=== PATIENT | female | born 1980 | race Caucasian/White ===

== ENCOUNTER → 2016-07-13 | Outpatient (CLI) | payer OTHER ==
[~2016-07-13] MED LIST: PRENTAB26 PO
[2016-07-13 11:25] LABS: BASO % 0.3 %; BASO ABS # 0.02 K/uL (0-0.2); EOS % 0.6 %; HEMATOCRIT 32.9 % (37-47); IG% 0.1 %; LYMPH % 25.8 %; LYMPH ABS # 1.87 K/uL (1.2-3.4); MEAN CORPUSCULAR HEMOGLOBIN 19.9 pg (25-34); MEAN CORPUSCULAR HGB CONC 33.1 g/dl (32-36); MONO % 6.8 %; NEUT % 66.4 %; PLATELET COUNT 270 K/uL (130-400); RED BLOOD COUNT 5.48 M/uL (4.2-5.4); WHITE BLOOD COUNT 7.25 K/uL (4.8-10.8)
[2016-07-13 11:55] LABS: COMPLETE YES; MICROCYTOSIS PRESENT; OVALOCYTES 1+; POIKILOCYTOSIS PRESENT
[2016-07-13 12:40] LABS: URINE APPEARANCE CLEAR (CLEAR); URINE BILIRUBIN NEG (NEG); URINE COLOR YELLOW; URINE NITRITE NEG (NEG); URINE SPECIFIC GRAVITY 1.007 (1.000-1.030); UROBILINOGEN NEG (NEG)
[2016-07-13 12:53] LABS: MANUAL MICROSCOPIC REQUIRED? NO; REVIEW REQ? NO
[2016-07-15 00:51] LABS: CHLAMYDIA TRACH RNA*** NOT DETECTED (NOT DETECTED); GC (NEIS GONORRHOEAE)RNA** NOT DETECTED (NOT DETECTED)
== END | disposition home or self-care (01) ==
LOC: C.LAB1850 10:03
PROVIDERS: ATTEND Obstetrics & Gynecology
DX: O09.521 Supervision of elderly multigravida, first trimester (principal)

== ENCOUNTER → 2016-09-07 | Outpatient (CLI) | payer OTHER ==
[2016-09-07 14:21] LABS: GTGD 50 Grams
[2016-09-08 13:38] LABS: AFP CONCENTRATION 36.5 NG/ML; AFP MULTIPLE OF MEDIAN 1.08; AFPTS GESTATIONAL AGE 16.6 WEEKS; AFPTS INSULIN DEP DIABETIC? NO; AFPTS MATERNAL WT 158 LBS; ALPHA-FETOPROTEIN RACE CAUCASIAN=W; HISTORY OF NTD NO; REPEAT SAMPLE? NO
== END | disposition home or self-care (01) ==
LOC: C.LAB1850 10:04
PROVIDERS: ATTEND Obstetrics & Gynecology
DX: O09.522 Supervision of elderly multigravida, second trimester (principal)

== ENCOUNTER → 2016-09-25 | Day surgery (SDC) | payer OTHER ==
[2016-09-22 10:37] VITALS: BMI 25.0
[~2016-09-25] VITALS: Ht 165.1 cm; Wt 70.9 kg
[~2016-09-25] MED LIST changes: +BUPIVACAINE 0.5 % 5 MG/1 ML PF 10ML VIAL ONE; +CEFAZOLIN 1000MG/55 ML D5W IV ONE; +CEFAZOLIN 1000MG/55 ML D5W IV SCH; +CEFAZOLIN IV 1,000 MG in DEXTROSE 5% 50ML 50 ML IV ONE; +LACTATED RINGER'S 1000ML 1,000 ML IV SCH; +LIDOCAINE HCL 1% 20 ML VIAL ONE; +PATIENT'S HEIGHT AND/OR WEIGHT NEEDED SCH; +SODIUM CHLORIDE 0.9% 1000ML 1,000 ML IV SCH
[2016-09-25 13:48] VITALS: Ht 165.1 cm; Wt 70.9 kg
--- NOTE | 2016-09-25 14:01 | History & Physical Bridge - SC ---
H&P Re-Evaluation Bridge Note: I have examined the patient, reviewed the History & Physical and in the interval since the performance of the History & Physical I have noted the following changes of clinical significance: No changes noted ASA II. .
--- NOTE | 2016-09-25 14:42 | [facility] Post Operative Brief Note ---
Immediate Operative Summary Operative Date Sep 25, 2016. Pre-Operative Diagnosis Left foot mass Post-Operative Diagnosis same Procedure(s) Performed Excisional Biopsy of Left Foot Mass Surgeon Dr Kelsey Plate Preparer Surgeon(s) Maryellen Bolton PA-C Estimated Blood Loss minimaal Findings Left Foot Mass localized to dermis Specimens A. Left foot mass Anesthesia Local Complication(s) None Disposition Recovery Room / PACU
--- NOTE | 2016-09-25 14:45 | Discharge Instructions-SurgCtr ---
Discharge Instructions Date of Service Sep 25, 2016. Visit Reason for Visit: Left Foot Mass Discharge Discharge Diagnosis / Problem: left foot mass Discharge Goals Goal(s): Decrease discomfort, Diagnostic testing, Therapeutic intervention Activity Recommendations Activity Limitations: per Instructions/Follow-up section Weightbearing Status: Left weightbearing (as tolerated) Anesthesia . Post Anesthesia Instructions: If you have had General Anesthesia or IV Sedation: * Do not drive today. * Resume driving when surgeon permits. * Do not make important decisions or sign legal documents today. * Call surgeon for: 1. Temperature elevations greater than 101 degrees F. 2. Uncontrollable pain. 3. Excessive bleeding. 4. Persistent nausea and vomiting. 5. Medication intolerance (nausea, vomiting or rash). * For nausea and vomiting use only clear liquids such as: tea, soda, bouillon until nausea subsides, then gradually increase diet as tolerated. * If you have any concerns or questions, call your surgeon's office. If physician is unavailable and it is an emergency, call 911 or go to the nearest emergency room. . Instructions / Follow-Up Instructions / Follow-Up MEDICATIONS: * Resume previous medications unless instructed otherwise by your surgeon. * Always take pain medication on a full stomach or with food to avoid upset stomach. * Do not drink alcohol or drive while taking narcotics. * Tylenol may be taken if narcotic not needed. SPECIAL CARE INSTRUCTIONS: __ None __ Keep extremity elevated and iced x 48 hours; apply ice 20-30 minutes 8-10 times/day. May remove at night. __ Crutches __ May discard when able _x_ Post-op shoe for weightbearing __ 24 hrs/day __ Remove at night _x_ Dressing __ Maintain until seen in office, may shower with plastic over site _x_ Remove dressings in 48 hours and then may shower _x_ Cover incisions with band-aids after showering __ Do not remove steri-strips Call physician if chills or temperature rises above 102 degrees or pain unrelieved by prescribed pain medications. Office [phone] follow up in 2 weeks Diet Recommendations Home Diet: resume previous diet Procedures Procedures Performed: Excisional Biopsy of Left Foot Mass Pending Studies Studies pending at discharge: no Medical Emergencies . Who to Call and When: Medical Emergencies: If at any time you feel your situation is an emergency, please call 911 immediately. . Non-Emergent Contact Non-Emergency issues call your: Surgeon . . "Provider Documentation" section prepared by Gallo Bolton.
--- NOTE | 2016-09-25 15:13 | OPERATIVE REPORT ---
DATE OF OPERATION: 09/25/2016 SURGEON: Dr. Holden Kelsey. RAILWAY HEAD TENDER: YANNICK Mahajan. PREOPERATIVE DIAGNOSIS: Left foot mass. POSTOPERATIVE DIAGNOSIS: Same. PROCEDURE PERFORMED: Excisional biopsy of left foot mass. COMPLICATIONS: None. ESTIMATED BLOOD LOSS: Minimal. TOURNIQUET TIME: 4 minutes at 300 mmHg. ANESTHESIA: Local. 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 She first noticed this about 5-6 months ago. I had seen at that time and we talked about excising, but she got and elected to just treat this conservatively and she just watch it over time. Over the past week or so, she has developed some black discoloration of this. It was initially painful, but resolved. The patient desired this to be excised. Plan was to proceed with excisional biopsy. Differential diagnosis is unclear. Dahinda was most likely some type of epidermal or an inclusion cyst, but the possibility even melanoma was considered. We did try to excise this fairly widely and send the tissue for pathology. SPECIMENS: Left foot mass sent for pathology. OPERATIVE PROCEDURE: The patient taken to the operating room, identified and placed on the operating table in supine position. All contact areas were appropriately padded. IV antibiotics were provided by the nursing staff. A left ankle tourniquet was placed. We then scrubbed the left foot with Hibiclens and then prepped it with ChloraPrep and then draped the foot in normal sterile fashion. The left leg was elevated but not exsanguinated. The tourniquet was then placed at 300 mmHg. I then ellipsed, made an elliptical incision around the mass incorporating the entire mass down to the subcutaneous tissues. I then excised this and sent it for pathology. I examined the subcutaneous tissues and did not appear to be any tissue in the subcutaneous tissues. We irrigated the wound extensively. I searched the base of the wound, there is no additional tissue or abnormal tissue visible. I then let the tourniquet down for a total tourniquet time of 4 minutes. The specimen was sent for pathology. The wound was irrigated. The skin was then closed with 3-0 nylon suture in a simple fashion. The foot was then cleaned and dried and a sterile dressing of Xeroform, 4 x 4s, sterile cast padding and a Coban wrap were applied. The patient then transferred to the recovery room in stable condition. The patient tolerated the procedure well with no complications. All needle and sponge counts were correct at the end of the operation. I attest to the content of the Intraoperative Record and any orders documented therein. Any exceptio ns are noted below.
[2016-09-25 15:38] VITALS: BP 100/66; PULSE 69; O2SAT 100
== END | disposition home or self-care (01) ==
LOC: X.SURG 13:04
PROVIDERS: ATTEND Orthopaedic Surgery Sports Medicine
DX: L85.9 Epidermal thickening, unspecified (principal); B07.9 Viral wart, unspecified

== ENCOUNTER → 2016-11-22 | Outpatient (CLI) | payer OTHER ==
[~2016-11-22] MED LIST changes: -BUPIVACAINE 0.5 % 5 MG/1 ML PF 10ML VIAL ONE; -CEFAZOLIN 1000MG/55 ML D5W IV ONE; -CEFAZOLIN 1000MG/55 ML D5W IV SCH; -CEFAZOLIN IV 1,000 MG in DEXTROSE 5% 50ML 50 ML IV ONE; -LACTATED RINGER'S 1000ML 1,000 ML IV SCH; -LIDOCAINE HCL 1% 20 ML VIAL ONE; -PATIENT'S HEIGHT AND/OR WEIGHT NEEDED SCH; -SODIUM CHLORIDE 0.9% 1000ML 1,000 ML IV SCH
== END | disposition home or self-care (01) ==
LOC: C.LAB1850 09:27
PROVIDERS: ATTEND Physician Assistant
DX: Z00.00 Encounter for general adult medical examination without abnormal findings (principal)

== ENCOUNTER → 2016-11-27 | Outpatient (CLI) | payer OTHER ==
[2016-11-27 17:34] LABS: HEMATOCRIT 29.3 % (37-47)
[2016-11-27 18:20] LABS: URINE APPEARANCE CLEAR (CLEAR); URINE BILIRUBIN NEG (NEG); URINE COLOR YELLOW; URINE EPITHELIAL CELL AUTO >30 /lpf (0-5); URINE NITRITE NEG (NEG); URINE PH 6.5 (4.5-7.5); URINE SPECIFIC GRAVITY 1.022 (1.000-1.030); UROBILINOGEN NEG (NEG)
[2016-11-27 18:21] LABS: MANUAL MICROSCOPIC REQUIRED? NO; REVIEW REQ? NO
[2016-11-27 18:21] LABS: GTGD 50 Grams
== END | disposition home or self-care (01) ==
LOC: C.LAB1850 15:52
PROVIDERS: ATTEND Obstetrics & Gynecology
DX: O09.523 Supervision of elderly multigravida, third trimester (principal)

== ENCOUNTER → 2017-01-25 | Outpatient (CLI) | payer OTHER | END | disposition home or self-care (01) | LOC: C.LABSPEC 17:47 | PROVIDERS: ATTEND Obstetrics & Gynecology | DX: O09.523 Supervision of elderly multigravida, third trimester (principal) ==

== ENCOUNTER 2017-02-19 16:55 | Inpatient (IN) | payer OTHER ==
[~2017-02-19] VITALS: Ht 162.6 cm; Wt 87.3 kg
[2017-02-19] MEDS ORDERED: LACTATED RINGER'S 1000ML 1,000 ML IV PRN (17:41)
[2017-02-19 17:52] VITALS: Ht 162.6 cm; Wt 87.3 kg
[2017-02-19] MEDS ORDERED: FENTANYL 2MCG/ML ROPIV 1.25MG/ML 100ML BAG EPI ONE (18:48)
[2017-02-19] MEDS ORDERED: EpHEDrine SULFATE INJ 50 MG/ML AMP ONE (18:48)
[2017-02-19] MEDS ORDERED: BUPIVACAINE 0.25% 30 ML VIAL ONE (18:48)
[2017-02-19] MEDS ORDERED: FENTANYL CITRATE INJ 50 MCG/1 ML 2 ML VIAL ONE (18:48)
[2017-02-19 18:52] LABS: MEAN CELL VOLUME 61.1 fL (80-100); MEAN CORPUSCULAR HEMOGLOBIN 19.8 pg (25-34); MEAN CORPUSCULAR HGB CONC 32.5 g/dl (32-36); PLATELET COUNT 278 K/uL (130-400); RED BLOOD COUNT 5.24 M/uL (4.2-5.4); WHITE BLOOD COUNT 13.63 K/uL (4.8-10.8)
[2017-02-19] MEDS: LACTATED RINGER'S 1000ML 1,000 ML IV SCH ×2 (20:10→21:12)
[2017-02-19] MEDS ORDERED: NALOXONE HCL INJ 1 MG in SODIUM CHLORIDE 0.9% 1000ML 1,000 ML IV PRN (20:15)
[2017-02-19] MEDS ORDERED: LACTATED RINGER'S 1000ML 500 ML IV PRN ×2 (20:15→21:31)
[2017-02-19] MEDS ORDERED: NALOXONE HCL INJ 0.4 MG/1 ML VIAL/CARP IV PRN (20:15)
[2017-02-19] MEDS ORDERED: NALBUPHINE HCL INJ 10 MG/ML AMP IV PRN (20:15)
[2017-02-19] MEDS ORDERED: DiphenhydrAMINE HCL 50 MG/ML VIAL IV PRN (20:15)
[2017-02-19] MEDS ORDERED: ONDANSETRON INJ 2 MG/ML 2 ML VIAL IV PRN (20:15)
[2017-02-19] MEDS ORDERED: EpHEDrine SULFATE INJ 50 MG/ML AMP IV PRN (20:15)
[2017-02-19] MEDS ORDERED: PHENYLEPHRINE 100MCG/ML 5ML SYR ONE (21:02)
[2017-02-19] MEDS: FENTANYL 2MCG/ML ROPIV 1.25MG/ML 100ML BAG EPI PRN ×2 (21:08→23:04)
[2017-02-19] MEDS ORDERED: OXYTOCIN 30 UNITS/500ML NSS IV PRN (21:45)
[2017-02-19] MEDS ORDERED: NURSING VERBAL MED ORDER ONE (23:15)
[2017-02-20] VITALS (8 sets, daily range): BP systolic 79–95; BP diastolic 43–61; PULSE 68–91; TEMP 36.3–37.2; O2SAT 94–100
[2017-02-20] MEDS ORDERED: SUPERCREAM 0.870 % 15GM JAR EXT PRN (01:30)
[2017-02-20] MEDS ORDERED: BENZOCAINE 20% AER SPR 82.5 GM CAN EXT PRN (01:30)
[2017-02-20] MEDS ORDERED: HYDROCORTISONE ACETATE 25 MG SUPP PR PRN (01:30)
[2017-02-20] MEDS ORDERED: OXYTOCIN 30 UNITS/500ML NSS IV PRN (01:30)
[2017-02-20] MEDS ORDERED: OXYCODONE/ACETAMINOPHEN 5-325 TAB PO PRN (01:30)
[2017-02-20] MEDS ORDERED: LANOLIN OINT EXT PRN ×2 (01:30)
--- NOTE | 2017-02-20 01:56 | Anesthesia Procedure Note ---
Anesthesia Epidural Removal Nt Date & Time Feb 20, 2017 at 01:56 Vital Signs Pain Intensity: 0.0 Notes Mental Status: alert / awake / arousable, participated in evaluation Nausea / Vomiting: adequately controlled Pain: adequately controlled Airway Patency, RR, SpO2: stable & adequate BP & HR: stable & adequate Hydration State: stable & adequate Neuraxial Anesthesia: was administered Anesthetic Complications: no major complications apparent, pt satisfied with anesthetic care Epidural: removed without complications, with tip intact
[2017-02-20] MEDS: IBUPROFEN 600 MG TAB PO PRN ×4 (04:40→19:50)
[2017-02-20] MEDS: DOCUSATE SODIUM 100 MG CAP PO SCH ×2 (07:30→19:50)
[2017-02-20] MEDS: ACETAMINOPHEN 325 MG TAB PO PRN ×2 (07:32→13:32)
--- NOTE | 2017-02-20 09:05 | DELIVERY SUMMARY ---
DATE OF OPERATION: 02/20/2017 PREDELIVERY DIAGNOSES: 1. A 37-year-old 5, para 2-0-2-2 at 40 weeks 1 day. 2. Spontaneous labor. 3. Heterozygous beta thalassemia trait. 4. History of loop electrosurgical excision procedure. POSTDELIVERY DIAGNOSES: Same. PROCEDURE: Spontaneous vaginal delivery with repair of first-degree perineal laceration. ESTIMATED BLOOD LOSS: 300 mL. FINDINGS: Viable male . Apgars 9 and 9. Weight 9 pounds 3 ounces. DESCRIPTION OF DELIVERY: The patient progressed to complete with epidural anesthesia. She then began to push. She spontaneously vaginally delivered a viable male in the left occiput anterior position. The head delivered followed by the anterior shoulder followed by the posterior shoulder followed by the body. The baby was placed on mother's abdomen. The cord was doubly clamped and cut. Spontaneous cry was heard. No nuchal cord was noted. Cord blood for private cord backing was collected. The placenta was then delivered spontaneously intact with a 3-vessel cord. Pitocin was given and the uterus became firm. The uterus and vagina were swept of all clots and debris. The cervix, vagina and perineum were inspected and a first-degree perineal laceration was noted and repaired in standard fashion with 3-0 Vicryl. An additional stitch of 3-0 Vicryl was used to obtained excellent hemostasis. Mother and baby tolerated the delivery well and recovered in the room in stable and good condition. All instrument, sponge and needle counts were correct at the conclusion of the delivery x2. I attest to the content of the Intraoperative Record and any orders documented therein. Any exception s are noted below.
[2017-02-21] MEDS: IBUPROFEN 600 MG TAB PO PRN (04:37)
--- NOTE | 2017-02-21 06:47 | Progress Note ---
Subjective Feb 21, 2017. Subjective physical exam Ambulation: ambulating normally Voiding: no voiding problems Passing Gas: Yes Diet Tolerance: Regular Diet Lochia: Small Feeding Type: Breast Feeding Review of Systems Constitutional: No fever, No chills, No sweats, No weight loss, No weakness, No fatigue, No problem reported Respiratory: No cough, No sputum, No wheezing, No shortness of breath, No dyspnea on exertion, No dyspnea at rest, No hemoptysis, No problem reported Breast: No see HPI, No breast lump, No change in shape, No nipple discharge, No breast pain, No problem reported Abdomen: No pain, No nausea, No vomiting, No diarrhea, No constipation, No GI bleeding, No problem reported Female : No see HPI, No dysuria, No urinary frequency, No hematuria, No incontinence, No abnormal vaginal bleeding, No vaginal discharge, No problem reported Objective Vital Signs Date Time Temp Pulse Resp B/P (MAP) Pulse Ox O2 Delivery O2 Flow Rate FiO2 02/20/17 23:20 36.5 71 16 91/61 (71) 94 Room Air 02/20/17 23:20 Room Air 02/20/17 20:30 36.5 72 16 95/58 (70) 100 Room Air 02/20/17 15:45 100 Room Air 02/20/17 15:45 36.5 70 16 89/55 (66) 100 Room Air 02/20/17 13:15 36.3 76 16 85/59 (68) Room Air 02/20/17 10:13 68 86/46 (59) 02/20/17 07:45 36.6 73 16 79/48 (58) 98 Room Air 79/43 (55) 02/20/17 07:45 98 Room Air Physical Exam General Appearance: WELL-APPEARING, NO APPARENT DISTRESS Fundus: Firm, Non-Tender, Relation to Umbilicus (2 below U) Extremities: no calf tenderness Laboratory Results Last 24 Hours Test 02/21/17 04:44 Assessment and Plan Day#: 1 Continue Routine Care: stable course continue current care plan
[2017-02-21 07:06] LABS: HEMATOCRIT 28.5 % (37-47)
--- NOTE | 2017-02-21 07:10 | Discharge Instructions ---
Discharge Instructions Date of Service Feb 21, 2017. Admission Reason for Admission: Check Labor Discharge Discharge Diagnosis / Problem: recovery from normal delivery Discharge Goals Goal(s): Routine recovery after delivery Medications Continue Dispensed Medications: supercream, dermaplast, lansinoh Activity Recommendations Activity Limitations: per Instructions/Follow-up section . Instructions / Follow-Up Instructions / Follow-Up ACTIVITY RECOMMENDATIONS: * Gradual return to full activity over the next 2-3 weeks. * No lifting - nothing heavier than baby over the next 2-3 weeks. * Do not engage in vigorous exercise, sexual activity or sports until cleared by your physician. * Do not drive or operate any motorized equipment until cleared by your physician. * You may shower/bathe daily. MEDICATIONS: For discomfort or pain, you may use Acetaminophen (Tylenol), Ibuprofen (Advil), or Naproxen (Aleve) following the package directions. For constipation you may use Colace following the package directions. BREAST CARE: If you are not breast feeding: * Wear a supportive bra 24 hours a day for one to two weeks. * Avoid stimulating your breasts and nipples as much as possible during the first few weeks after delivery. * When taking a shower, have the warm water hit your back, not breasts. * When your breasts feel full, apply ice packs. Usually three to four times a day helps ease the discomfort. * Take a mild pain medication (Tylenol / Motrin) when you are uncomfortable. If breast feeding: * Use breast milk to lubricate nipples. Lansinoh cream may be used for sore nipples. You do not need to remove cream prior to breast feeding. If using a different brand of cream, check the label for directions regarding removal of cream prior to nursing. * Wear a supportive bra. * If having problems with breasts or breast feeding, call a customer relations consultant or your health care provider. EPISIOTOMY CARE: After delivery, if you have an episiotomy (stitches), the following steps will ease discomfort and aid healing. * For the first 24 hours after delivery, place ice packs next to your episiotomy to help reduce swelling. * After the first 24 hour-period, sitz baths, either portable or in the tub, are suggested. A shower with a shower arm sprayed over the episiotomy may be comforting. * Michelle care should be done after each voiding and bowel movement. Squirt warm water from a plastic bottle over the perineum (region of the body between the anus and urinary opening) and pat dry. * Use Dermoplast to ease discomfort. Shake container. [place] directly over the episiotomy. Place a Tucks on a clean sanitary pad next to your episiotomy. SPECIAL CARE INSTRUCTIONS: When you are discharged from the hospital, it is important for you to follow the instructions listed below: * During the first week at home, you should be able to care for yourself and your baby. In addition, the usual light household activities are encouraged. * Limit your activities to the way you feel. Do not try to clean the house or move furniture. Be sensible. * If you actively engage in sports and have done so up until the time of your delivery, you may resume these activities as soon as you feel able. This may take up to one month or even longer. Use good judgment. * Continue to take your vitamins for at least six weeks after the of your baby. * Your diet need not be limited unless you were on a special diet before your delivery. Breast-feeding mothers need around 2500 calories per day and at least 64-80 ounces of fluid per day (8 to 10 glasses). * You should eat foods from the four major food groups. Crash diets or fad diets are to be avoided. Eating lean meats, fresh fruits and vegetables, low-fat dairy products, high fiber foods and a regular exercise program, will help you get back to your pre- weight without putting your health at risk. * Constipation is sometimes a problem after delivery. Take a mild laxative as needed. If breast feeding, Milk of Magnesia is acceptable to use. You may use a suppository or Fleets enema if no episiotomy. * A daily shower or tub bath is suggested. Be sure to thoroughly and gently dry the perineum. * A bloody vaginal discharge will usually continue until around four weeks post . A small amount of bleeding may continue for as long as six weeks. Vaginal discharge changes from the bright red bleeding after delivery to pink then brownish and finally yellowish-pink before becoming white and disappearing. * Bleeding may increase with activity. Your first period may come in 4-8 weeks. If you are breast feeding, your period may be delayed even longer. * [place] (sex) can begin whenever both you and your partner feel comfortable and do not have any form of genital infection. It is recommended that you wait at least six weeks for internal and external healing to occur. If you have questions, please talk to your health care practitioner. A condom should be used to prevent infection and . * Foreplay, gentle intercourse and lubrication is very important the first several times to prevent pain. A water-based lubricant such as K-Y jelly or Astroglide may be used. * If you have RH negative blood and your baby is RH positive, you will receive RHOGAM by injection prior to discharge. The nurse will give you a card to keep with you that has the date and place that you received RHOGAM after delivery. * During your care, you had a Rubella screen done to check for the presence of rubella antibodies in your blood. If your test was negative, you will receive a Rubella vaccine prior to discharge. This vaccine may cause a fever, soreness at the injection site and flu-like symptoms. If these symptoms persist, notify your health care practitioner. is not advised for one month after a Rubella vaccine. * Verbalizes understanding of car seat law as reviewed with patient nursing. * Car Seat hand-out given and reviewed with patient by nursing. * Shaken baby information reviewed with patient by nursing. Call you doctor if: * Heavy bleeding (saturating several pads an hour) or passing clots the size of your fist. * A fever >101 degrees F (38.3 degrees C) on two occasions four hours apart and /or chills. * Unusual pain in the pelvic or vaginal areas. * "Baby Blues" lasting longer than two weeks. If you have any questions or concerns, call your health care practitioner at . FOLLOW UP VISIT: * Please call the office at to schedule a 6 week examination. It is important you keep this appointment. It is important for you to make arrangements for either yearly or twice yearly check-ups thereafter. Current Hospital Diet Patient's current hospital diet: Regular OB Diet Discharge Diet Recommended Diet: Regular OB Diet Pending Studies Studies pending at discharge: no Laboratory Results Lipid Panel Test 11/22/16 09:31 Range/Units Triglycerides Level 174 H 0-150 mg/dl Cholesterol Level 291 H 0-200 mg/dl HDL Cholesterol 72 mg/dl Cholesterol/HDL Ratio 4.0 LDL Cholesterol, Calculated 184 mg/dl Medical Emergencies . Who to Call and When: Medical Emergencies: If at any time you feel your situation is an emergency, please call 911 immediately. . Non-Emergent Contact Non-Emergency issues call your: Violin Mechanic . . "Provider Documentation" section prepared by Wendy Jurado. . VTE Core Measure Inpt VTE Proph given/why not?: Treatment not indicated
[2017-02-21] MEDS ORDERED: PRENATAL VITAMIN TAB PO SCH (08:00)
[2017-02-21 08:30] VITALS: BP 86/52; PULSE 72; TEMP 36.4; O2SAT 98
[2017-02-21] MEDS: DOCUSATE SODIUM 100 MG CAP PO SCH (09:47)
[2017-02-21 16:00] VITALS: BP 95/66; PULSE 67; TEMP 36.7; O2SAT 98
[2017-02-21] MEDS ORDERED: BISACODYL 5 MG TABEC PO SCH (20:00)
== END 2017-02-21 19:10 | disposition home or self-care (01) | DRG 775 ==
LOC: C.LD 16:55 → C.OPB 16:55 → C.LD 17:43 → C.OPB 17:43 → C.OBG 02-20 03:45
PROVIDERS: ADMIT Obstetrics & Gynecology; ATTEND Obstetrics & Gynecology
PROC: 10E0XZZ Delivery of Products of Conception, External Approach (ICD-10-PCS; principal; 2017-02-20)
PROC: 0HQ9XZZ Repair Perineum Skin, External Approach (ICD-10-PCS; principal; 2017-02-20)
DX: O48.0 Post-term pregnancy (principal); Z37.0 Single live birth; Z3A.40 40 weeks gestation of pregnancy; O26.893 Other specified pregnancy related conditions, third trimester; O70.0 First degree perineal laceration during delivery; O99.02 Anemia complicating childbirth; O35.2XX0 Maternal care for (suspected) hereditary disease in fetus, not applicable or unspecified; D56.3 Thalassemia minor

== ENCOUNTER → 2017-04-04 | Outpatient (CLI) | payer OTHER | END | disposition home or self-care (01) | LOC: C.PAPS 17:48 | PROVIDERS: ATTEND Obstetrics & Gynecology | DX: Z39.2 Encounter for routine postpartum follow-up (principal) ==

== ENCOUNTER → 2018-01-15 | Outpatient (CLI) | payer OTHER ==
[2018-01-15 12:39] LABS: ALBUMIN 3.6 gm/dl (3.4-5.0); TOTAL PROTEIN 7.8 gm/dl (6.4-8.2)
== END | disposition home or self-care (01) ==
LOC: C.LAB1850 10:36
PROVIDERS: ATTEND Internal Medicine
DX: Z00.00 Encounter for general adult medical examination without abnormal findings (principal); R10.13 Epigastric pain

== ENCOUNTER → 2018-01-30 | Outpatient (CLI) | payer OTHER ==
--- NOTE | 2018-01-30 10:27 | DIAGNOSTIC IMAGING REPORT ---
ULTRASOUND RIGHT UPPER QUADRANT ABDOMEN CLINICAL HISTORY: Epigastric abdominal pain. COMPARISON STUDY: Abdominal ultrasound dated 10/30/2011. TECHNIQUE: Real-time, grayscale, and color flow sonography of the right upper quadrant of the abdomen was performed. Images are reviewed in the transverse and longitudinal planes. FINDINGS: Liver: The liver is normal in size and echotexture. There is no intrahepatic biliary ductal dilatation. The main portal vein is patent. Gallbladder: Small gallbladder polyps are incidentally noted and measure up to 4 mm. These were also seen on the 2012 examination. The gallbladder is otherwise normal in appearance. No gallstones are identified. There is no gallbladder wall thickening or pericholecystic fluid. A sonographic Matson's sign is reportedly absent. The common bile duct measures up to 0.3 cm in diameter. Pancreas: Visualized portions of the pancreatic head and body are normal in appearance. The splenic vein is patent. Right kidney: Survey images of the right kidney demonstrate normal size and echotexture. There is no hydronephrosis. Ascites: None. IMPRESSION: No acute sonographic abnormality is identified in the right upper quadrant. No gallstones are seen. Electronically signed by: Keyur Merritt M.D. 01/30/2018 10:25 AM Dictated Date/Time: 01/30/2018 10:24 AM
== END | disposition home or self-care (01) ==
LOC: C.ULTR 09:49
PROVIDERS: ATTEND Internal Medicine
DX: R10.13 Epigastric pain (principal)

== ENCOUNTER 2020-03-19 10:24 | Inpatient (IN) ==
[2020-03-19] MEDS ORDERED: OXYTOCIN 30 UNITS/500 ML BAG IV PRN ×3 (10:27→17:39)
[2020-03-19 10:55] LABS: Hematocrit (blood only) 32.5 % (37-47); Hemoglobin 10.2 g/dL (12.0-16.0); Mean Corpuscular Hemoglobin 19.6 pg (25-34); Mean Corpuscular Volume 62.4 fL (80-100); Mean Platelet Volume 10.2 fL (7.4-10.4); Platelet Count 253 K/uL (130-400); RDW Coefficient of Variation 15.9 % (11.5-14.5); RDW Standard Deviation 35.4 fL (36.4-46.3); Red Blood Count 5.21 M/uL (4.2-5.4); White Blood Count 9.05 K/uL (4.8-10.8)
[2020-03-19 11:01] LABS: Mean Corpuscular Hgb Conc 31.4 g/dL (32-36)
[2020-03-19] MEDS: LACTATED RINGER'S 1,000 ML IV PRN ×2 (11:30→15:17)
[2020-03-19] MEDS ORDERED: ePHEDrine sulfate 50 MG/ML AMP ONE (14:21)
[2020-03-19] MEDS ORDERED: fentaNYL 2MCG/ML ROPIV 1.25MG/ML 100 ML BAG EPI ONE (14:22)
[2020-03-19] MEDS ORDERED: fentaNYL citrate 100 MCG/2 ML VIAL ONE (14:22)
[2020-03-19] MEDS ORDERED: BUPIVACAINE 0.25% 30 ML VIAL ONE (14:22)
[2020-03-19] MEDS ORDERED: ONDANSETRON INJ 2 MG/ML 2 ML VIAL IV PRN (14:44)
[2020-03-19] MEDS ORDERED: DiphenhydrAMINE HCL 50 MG/ML VIAL IV PRN (14:44)
[2020-03-19] MEDS ORDERED: ePHEDrine sulfate 50 MG/ML AMP IV PRN (14:44)
[2020-03-19] MEDS ORDERED: NALOXONE HCL 0.4 MG/1 ML VIAL/CARP IV PRN (14:44)
[2020-03-19] MEDS ORDERED: fentaNYL 2MCG/ML ROPIV 1.25MG/ML 100 ML BAG EPI PRN (14:44)
[2020-03-19] MEDS ORDERED: NALOXONE HCL 1 MG in SODIUM CHLORIDE 0.9% 1000ML 1,000 ML IV PRN (14:44)
--- NOTE | 2020-03-19 14:48 | Anesthesiology Consultation ---
Date of Service March 19, 2020 Patient is Covid 19 negative as of 03/15/20. The patient is my . Due to the risk of Covid 19 she would prefer as little exposure to medical personnel as possible and would therefore like for me to place her epidural. Previous permission for me to place her epidural was given by Dr. Dinero. Assessment & Plan Chart Review Chart Review: Patient NOT seen in Pre Admission Testing and Acceptable Risk for Labor Epidural Consults Requested none ASA ASA2 Proposed Anesthesia Anesthesia Type: Labor Epidural and CSE Risk / Benefits Reviewed With: PT / POA / Parent / Guardian, Accepts Plan and Informed Consent Obtained History Height/Weight Height: 5 ft 5 in Weight: 81.647 kg Allergies Allergy/AdvReac Type Severity Reaction Status Date / Time No Known Drug Allergies Allergy Unknown Verified 03/19/20 11:48 latex AdvReac Rash Verified 03/19/20 11:48 Medications Home Medications Medication Instructions Recorded Confirmed Last Taken aspirin 81 mg tablet,delayed 81 mg PO DAILY 01/22/20 03/19/20 03/18/20 21:30 release docusate sodium [Colace] 100 mg PO DAILY 03/19/20 03/19/20 03/17/20 19:00 ferrous sulfate [Iron (ferrous 325 mg PO DAILY 03/19/20 03/19/20 03/19/20 07:00 sulfate)] prenat.vits,dara,jjz-[id number]-aulci 1 tab PO DAILY 03/19/20 03/19/20 03/19/20 08:00 [ Vitamin] Active Medications Generic Name Dose Route Start Last Admin Trade Name Freq PRN Reason Stop Dose Admin Lactated Ringer's 1,000 mls @ 125 mls/hr 03/19/20 10:27 03/19/20 14:33 Lr IV 03/21/20 10:26 999 mls/hr .Q8H PRN Infusion L&D Protocol Protocol Oxytocin 30 units in 500 mls @ 3 mls/hr 03/19/20 10:27 03/19/20 14:20 Pitocin IV 03/21/20 10:26 0.18 units/hr .Q24H PRN 3 mls/hr Labor Induction/Augmentation Titration Protocol 0.18 UNITS/HR Past Medical History Medical History Beta thalassemia, heterozygous Cervical dysplasia Leep 08/2010 LEONELA 1-2 Encounter for contraceptive management Encounter for anatomic survey Evaluate anatomy not seen on prior sonogram History of varicella Pelvic cramping Visit for routine director dance exam Exercise / Class Metabolic Activity II 4-5 Yardwork/Stairs/Walk up hill Past Family History Family History Father Cerebral arterial aneurysm Hypertension Aunt Cerebral arterial aneurysm Grandfather (Paternal) Stroke Grandmother (Paternal) Stroke Other Thalassemia Past Surgical History Surgical History History of loop electrical excision procedure (LEEP) S/P appendectomy S/P tooth extraction Status post hip surgery left Past Anesthesia History No Hx of Anesthesia Complications and No Family Hx of Anesthesia Complications Social History Smoking Status: Never smoker Hx Alcohol Use: No Hx Substance Use: No Review of Systems no chest pain or sob Physical Exam Vital Signs Last Vital Signs Temp 36.8 C 03/19/20 11:10 Pulse 70 03/19/20 14:41 Resp 20 03/19/20 11:10 BP 113/77 03/19/20 14:40 Pulse Ox 99 03/19/20 14:41 ENMT Mouth: no TMJ abnormality Thyromental Distance: > or= 3.5 Finger Breadths Mallampati Class: II Neck normal visual inspection Respiratory normal respiratory effort Auscultation: lungs clear to auscultation bilaterally Cardiovascular Rate/Rhythm: regular rate and regular rhythm Musculoskeletal Spine: normal cervical ROM Neurologic moves all extremities Psychiatric Orientation: alert and oriented x 3 Testing Laboratory Results 03/19/20 10:45
--- NOTE | 2020-03-19 17:27 | Anesthesia Procedure Note ---
Date of Service March 19, 2020 Anesthesia Post Epidural Note Vital Signs Vital Signs: Temp Pulse Resp BP Pulse Ox 36.8 C 58 L 20 107/53 L 100 03/19/20 15:29 03/19/20 17:11 03/19/20 15:29 03/19/20 17:11 03/19/20 16:51 Notes Mental Status: alert / awake / arousable and participated in evaluation Nausea / Vomiting: adequately controlled Pain: adequately controlled Airway Patency, RR, SpO2: stable & adequate BP & HR: stable & adequate Hydration State: stable & adequate Neuraxial Anesthesia: was administered and sensory block is resolving Anesthetic Complications: no major complications apparent and Pt Satisfied with anesthetic care Epidural: Removed without complications and With tip intact
[2020-03-19] MEDS ORDERED: DIPHTHERIA/TETANUS/PERTUSSIS 0.5 ML SYR/VIAL IM ONE (17:39)
[2020-03-19] MEDS ORDERED: HYDROCORTISONE ACETATE 25 MG SUPP PR PRN (17:39)
[2020-03-19] MEDS ORDERED: OXYCODONE/ACETAMINOPHEN 5mg/325mg TAB PO PRN (17:39)
[2020-03-19] MEDS ORDERED: ACETAMINOPHEN 325 MG TAB PO PRN (17:39)
[2020-03-19] MEDS ORDERED: BENZOCAINE 20% AER SPR 82.5 GM CAN EXT PRN (17:39)
[2020-03-19] MEDS ORDERED: bisacodyL 10 MG SUPP PR PRN (17:39)
[2020-03-19] MEDS ORDERED: SUPERCREAM 0.870% 15 GM JAR EXT PRN (17:39)
[2020-03-19] MEDS: IBUPROFEN 600 MG TAB PO PRN (18:47)
--- NOTE | 2020-03-19 20:06 | Delivery Summary ---
Vaginal Delivery Summary Date of Service March 19, 2020 Patient is a 40-year-old 4 para 3-0-0-3 white female who presented at 40+ weeks for induction of labor because appropriate postterm . Pitocin was begun and membranes were then ruptured for clear fluid. She received effective epidural analgesia and moved quickly to complete dilation. She pushed effectively through 1 contraction for delivery of a viable female infant over intact perineum. The infant was vigorous and moving all 4 limbs. She was placed on the mother's abdomen for further attention and drying. After 1 minute the cord was clamped and cut. The placenta was expressed intact with a three-vessel cord. A first-degree perineal laceration was repaired with 3-0 chromic in the usual fashion. bleeding was controlled with dilute Pitocin. Estimated blood loss was 200 cc. Mother and infant were doing well after delivery. [facility] [place] Vaginal Delivery Codes: 98635 global code for the antepartum, delivery, and post-
[2020-03-19] MEDS: DOCUSATE SODIUM 100 MG CAP PO SCH (21:53)
[2020-03-19] MEDS ORDERED: ASPIRIN 81 MG ECTAB PO SCH (22:00)
[2020-03-19] MEDS ORDERED: FERROUS SULFATE 325 MG TAB PO SCH (22:00)
[2020-03-20] MEDS: IBUPROFEN 600 MG TAB PO PRN ×3 (02:35→13:11)
[2020-03-20 06:35] LABS: Hematocrit (blood only) 29.9 % (37-47); Hemoglobin 9.6 g/dL (12.0-16.0); Mean Corpuscular Hemoglobin 20.2 pg (25-34); Mean Corpuscular Hgb Conc 32.1 g/dL (32-36); Mean Corpuscular Volume 62.8 fL (80-100); Mean Platelet Volume 10.9 fL (7.4-10.4); Platelet Count 234 K/uL (130-400); RDW Coefficient of Variation 15.9 % (11.5-14.5); RDW Standard Deviation 35.7 fL (36.4-46.3); Red Blood Count 4.76 M/uL (4.2-5.4); White Blood Count 12.55 K/uL (4.8-10.8)
[2020-03-20] MEDS ORDERED: PRENATAL VITAMIN 1 TAB PO SCH (08:00)
[2020-03-20] MEDS: DOCUSATE SODIUM 100 MG CAP PO SCH (08:08)
--- NOTE | 2020-03-20 08:25 | Obstetrical Progress Note ---
Date of Service March 20, 2020 Assessment & Plan (1) Encounter for care and examination after delivery: doing well wishes to be discharge follow up in 6 weeks Subjective Ambulation: ambulating normally Voiding: no voiding problems Passing Gas:: Yes Diet Tolerance:: regular diet Lochia:: Small Feeding Type:: breast feeding Review of Systems All systems reviewed & are unremarkable except as noted in HPI & below Physical Exam Constitutional WD/WN, vitals as above Psychiatric A+Ox3, euthymic affect Genitourinary OB Exam Abdomen: + fundal height Fundus: + firm and + relation to umbilicus (2 below U) Results & Data ([facility]) Vital Signs (Past 12 Hours) Vital Signs Temp Pulse Resp BP 03/20/20 04:30 97.5 F L 61 18 100/62 03/20/20 00:00 98.4 F 65 16 103/65
[2020-03-20] MEDS ORDERED: NON-FORMULARY MEDICATION (Ferrous Sulfate [Iron (Ferrous Sulfate)] 325 MG) PO SCH (09:00)
[2020-03-20] MEDS ORDERED: bisacodyL 5 MG TABEC PO SCH (20:00)
== END 2020-03-20 18:10 | disposition home or self-care (01) | DRG 807 ==
LOC: 4S1 10:24 → 4S2 20:38
DX: Z83.2 Family history of diseases of the blood and blood-forming organs and certain disorders involving the immune mechanism; Z79.899 Other long term (current) drug therapy; Z3A.40 40 weeks gestation of pregnancy; Z91.040 Latex allergy status; O70.0 First degree perineal laceration during delivery; O99.03 Anemia complicating the puerperium; D56.1 Beta thalassemia; Z88.0 Allergy status to penicillin; O48.0 Post-term pregnancy; Z79.82 Long term (current) use of aspirin; Z37.0 Single live birth